=== PATIENT | female | born 2000 | race Two or more races ===

== ENCOUNTER → 2025-04-08 | Outpatient (CLI) | payer OTHER, SELFPAY ==
--- NOTE | 2025-04-08 14:30 | XR_ITS ---
Examination: Transvaginal ultrasound of the pelvis, complete Technique: Transvaginal sonographic images pelvis performed using montiel scale imaging Exam date and time: April 08, 2025 1430 hours INDICATIONS: Vaginal bleeding after intercourse one month ago FINDINGS: Uterus 4.8 cm endometrial stripe 0.1 cm No uterine mass or intrauterine gestation Right ovary 2.7 cm arterial flow Left ovary 2.6 cm arterial flow IMPRESSION: Negative examination.
== END | disposition home or self-care (01) ==
PROVIDERS: PCP Registered Nurse; Referring Provider Registered Nurse; Visit Provider Registered Nurse
DX: N93.9 Abnormal uterine and vaginal bleeding, unspecified (principal)
CPT/HCPCS: 76830